=== PATIENT | male | born 1955 | race Caucasian/White ===

== ENCOUNTER 2019-01-01 08:53 | Emergency (ER) | payer OTHER ==
[2019-01-01] MEDS ORDERED: Sodium Chloride 0.9% 10 ML Syringe FLUSH PRN (09:24)
--- NOTE | 2019-01-01 09:29 | EDM.PDOC ---
ED HPI GENERAL MEDICAL PROBLEM - General Chief Complaint: Chest Pain Stated Complaint: HIGH BP, HEART FLUTTERS, SOB Time Seen by Provider: 01/01/19 09:15 Source of Information: Reports: Patient, RN History Limitations: Reports: Other (poor historian) - History of Present Illness INITIAL COMMENTS - FREE TEXT/NARRATIVE: 63 yo male presents with L sided CP and mild SOB since last . This the first time he has been seen for this. Has no personal hx of CAD, but has a strong FHx of this. No fever or cough. Has BROWN. No orthopnea. Is a non-smoker. Denies calf pain. Chest pain is not worse with deep breathing or cough. Pain is less severe now than at onset. Onset: Sudden Onset Date: 12/28/18 Duration: Day(s):, Improving Location: Reports: Chest Quality: Reports: Dull Severity: Mild Improves with: Reports: Other (? time) Worsens with: Reports: Other (unknown) Context: Reports: Other (see HPI) Associated Symptoms: Reports: Chest Pain, Shortness of Breath (mild). 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) (usual meds only, including his ASA 81 mg po) chest Pain Score (Numeric/FACES): 3 - Related Data Allergies Allergy/AdvReac Type Severity Reaction Status Date / Time No Known Allergies Allergy Verified 01/01/19 09:01 Home Meds: Home Meds Aspirin [Ecotrin EC] 81 mg PO DAILY 01/01/19 [History] Lisinopril 10 mg PO DAILY 01/01/19 [History] Omeprazole Magnesium [Prilosec Otc] 20 mg PO DAILY 01/01/19 [History] Triamterene/Hydrochlorothiazid [Triamterene-HCTZ 37.5-25 MG] 1 tab PO DAILY [History] atorvaSTATin [Lipitor] 20 mg PO DAILY 01/01/19 [History] Past Medical History HEENT History: Reports: Impaired Vision Cardiovascular History: Reports: High Cholesterol, Hypertension Gastrointestinal History: Reports: GERD Psychiatric History: Reports: Anxiety Endocrine/Metabolic History: Reports: Diabetes, Type II Social & Family History - Tobacco Use Smoking Status *Q: Never Smoker - Caffeine Use Caffeine Use: Reports: Coffee - Recreational Drug Use Recreational Drug Use: No ED ROS GENERAL - Review of Systems Review Of Systems: See Below Constitutional: Reports: No Symptoms HEENT: Reports: No Symptoms Respiratory: Reports: Shortness of Breath (mild, worse with exertion). Denies: Wheezing, Pleuritic Chest Pain, Cough, Sputum, Hemoptysis Cardiovascular: Reports: Chest Pain (L anterior chest), Blood Pressure Problem ( higher than usual lately), Dyspnea on Exertion, Lightheadedness (mild), Palpitations (intermittent). Denies: Edema, Orthopnea Endocrine: Reports: No Symptoms GI/Abdominal: Reports: No Symptoms : Reports: No Symptoms Musculoskeletal: Reports: No Symptoms Skin: Reports: No Symptoms Neurological: Reports: No Symptoms Psychiatric: Reports: No Symptoms ED EXAM, GENERAL - Physical Exam Exam: See Below Exam Limited By: No Limitations General Appearance: Alert, WD/WN, No Apparent Distress Eye Exam: Bilateral Eye: Normal Inspection Ears: Normal External Exam, Normal Canal, Hearing Grossly Normal Ear Exam: Bilateral Ear: Auricle Normal, Canal Normal Nose: Normal Inspection, No Blood Throat/Mouth: Normal Inspection, Normal Lips, Normal Oropharynx, Normal Voice, No Airway Compromise Head: Atraumatic, Normocephalic Neck: Normal Inspection Respiratory/Chest: No Respiratory Distress, Rhonchi (at bases only). No: Respiratory Distress, Wheezing, Accessory Muscle Use Cardiovascular: Regular Rate, Rhythm, No Edema GI/Abdominal: Normal Bowel Sounds, Soft, Non-Tender, No Distention Back Exam: Normal Inspection. No: CVA Tenderness (R), CVA Tenderness (L) Extremities: Normal Inspection, Normal Range of Motion, Non-Tender, No Pedal Edema Neurological: Alert, Oriented, CN II-XII Intact, Normal Cognition, No Motor/ Sensory Deficits Psychiatric: Normal Affect, Normal Mood Skin Exam: Warm, Dry, Intact, Normal Color, No Rash EKG INTERPRETATION EKG Date: 01/01/19 Time: 08:55 Rhythm: NSR Rate (Beats/Min): 85 [place]: Normal P-Wave: Present QRS: Normal ST-T: Normal QT: Normal Comparison: NA - No Prior EKG EKG Interpretation Comments: LVH noted. Course - Vital Signs Last Recorded V/S: Last Vital Signs Temp 36.3 C 01/01/19 08:59 Pulse 82 01/01/19 10:20 Resp 20 01/01/19 10:20 BP 139/109 H 01/01/19 10:20 Pulse Ox 97 01/01/19 10:20 - Orders/Labs/Meds Orders: Active Orders 24 hr Category Date Time Status Cardiac Monitoring [RC] .As Directed Care 01/01/19 09:24 Active EKG Documentation Completion [RC] ASDIRECTED Care 01/01/19 09:04 Active Sodium Chloride 0.9% [Saline Flush] Med 01/01/19 09:24 Active 10 ml FLUSH ASDIRECTED PRN Saline Lock Insert [OM.PC] Routine Oth 01/01/19 09:24 Ordered EKG 12 Lead [EK] Routine Ther 01/01/19 09:04 Ordered Medication Orders Sodium Chloride (Saline Flush) 10 ml FLUSH ASDIRECTED PRN PRN Reason: Keep Vein Open Last Admin: 01/01/19 09:35 Dose: 10 ml Labs: Laboratory Tests 01/01/19 01/01/19 01/01/19 Range/Units 09:23 09:37 09:37 WBC 8.6 (4.5-11.0) K/uL RBC 4.97 (4.30-5.90) M/uL Hgb 15.3 H (12.0-15.0) g/dL Hct 45.8 (40.0-54.0) % MCV 92 (80-98) fL MCH 31 (27-31) pg MCHC 33 (32-36) % Plt Count 339 (150-400) K/uL D-Dimer, Quantitative 152 (0.0-400.0) ng/mL Sodium 138 L (140-148) mmol/L Potassium 3.6 (3.6-5.2) mmol/L Chloride 101 (100-108) mmol/L Carbon Dioxide 24 (21-32) mmol/L Anion Gap 16.6 H (5.0-14.0) mmol/L BUN 24 H (7-18) mg/dL Creatinine 1.0 (0.8-1.3) mg/dL Est Cr Clr Drug Dosing 79.08 mL/min Estimated GFR (MDRD) > 60 (>60) Glucose 134 H (74-106) mg/dL Calcium 9.6 (8.5-10.1) mg/dL Troponin I < 0.017 (0.000-0.056) ng/mL Meds: Medications Generic Name Dose Route Start Last Admin Trade Name Magedq PRN Reason Stop Dose Admin Sodium Chloride 10 ml 01/01/19 09:24 01/01/19 09:35 Saline Flush FLUSH 10 ml ASDIRECTED PRN Administration Keep Vein Open Discontinued Medications Generic Name Dose Route Start Last Admin Trade Name Magedq PRN Reason Stop Dose Admin Ketorolac Tromethamine 15 mg 01/01/19 10:10 01/01/19 10:17 Toradol IVPUSH 01/01/19 10:11 15 mg ONETIME ONE Administration Lisinopril 10 mg 01/01/19 10:10 01/01/19 10:16 Prinivil PO 01/01/19 10:11 10 mg ONETIME ONE Administration - Radiology Interpretation Free Text/Narrative:: CXR-neg Departure - Departure Time of Disposition: 10:25 Disposition: Home, Self-Care 01 Condition: Good Clinical Impression: Nonspecific chest pain HTN (hypertension) Qualifiers: Hypertension type: essential hypertension Qualified Code(s): I10 - Essential ( primary) hypertension Referrals: Juan C Mullins MD [Primary Care Provider] - Forms: ED Department Discharge Additional Instructions: Increase your lisinopril dose to 20 mg every day. Take acetaminophen up to 1000 mg every 6 hrs as needed for pain relief. Continue your other medicines as currently. Recheck with your provider before the end of the week. Return here to the ER if a lot worse. - My Orders Last 24 Hours: My Active Orders 01/01/19 09:04 EKG Documentation Completion [RC] ASDIRECTED EKG 12 Lead [EK] Routine 01/01/19 09:24 Cardiac Monitoring [RC] .As Directed Sodium Chloride 0.9% [Saline Flush] 10 ml FLUSH ASDIRECTED PRN Saline Lock Insert [OM.PC] Routine - Assessment/Plan Last 24 Hours: My Active Orders 01/01/19 09:04 EKG Documentation Completion [RC] ASDIRECTED EKG 12 Lead [EK] Routine 01/01/19 09:24 Cardiac Monitoring [RC] .As Directed Sodium Chloride 0.9% [Saline Flush] 10 ml FLUSH ASDIRECTED PRN Saline Lock Insert [OM.PC] Routine
--- NOTE | 2019-01-01 09:55 | CR ---
CHEST: 2 view CLINICAL HISTORY:SOB COMPARISON:None FINDINGS: The heart size, pulmonary vascular and hilar structures are normal. No infiltrate effusion or pneumothorax is seen. There are atherosclerotic changes in the aorta. IMPRESSION: No acute cardiopulmonary process.
[2019-01-01] MEDS ORDERED: Lisinopril 10 MG Tab PO ONE (10:10)
[2019-01-01] MEDS ORDERED: Ketorolac 30 MG/ML SDV IVPUSH ONE (10:10)
== END 2019-01-01 10:50 | disposition home or self-care (01) ==
LOC: JP.ED 08:53
DX: R07.9 Chest pain, unspecified (principal); I10 Essential (primary) hypertension; E11.9 Type 2 diabetes mellitus without complications; K21.9 Gastro-esophageal reflux disease without esophagitis; E78.00 Pure hypercholesterolemia, unspecified; Z79.82 Long term (current) use of aspirin; Z79.899 Other long term (current) drug therapy
CPT/HCPCS: 36415; 71046; 80048; 84484; 85027; 85379; 93005; 96374; 99285; A9270; J1885; 99284